=== PATIENT | female | born 1940 | race Caucasian/White ===

== ENCOUNTER → 2017-01-02 | Outpatient (CLI) | payer OTHER | LOC: BMCIMAGING 10:38 | PROVIDERS: ATTEND Internal Medicine Endocrinology, Diabetes & Metabolism | DX: E04.1 Nontoxic single thyroid nodule (principal) | CPT/HCPCS: 76536-PO ==

== ENCOUNTER 2017-04-04 18:22 | Inpatient (IN) | payer OTHER ==
--- NOTE | 2017-04-04 18:37 | EDPHY ---
H & P Stated Complaint: pulm edema seen on Xray sent pt. HPI/ROS: CHIEF COMPLAINT: Dyspnea HISTORY OF PRESENT ILLNESS: The patient is an anticoagulated 76 y/o female arriving with her complaining of dyspnea and bilateral lower extremity edema worsening over the last week. She has a was referred to the emergency department by Dr. Dariel Vasquez after being examined by him in his office. She has a history of mechanical aortic valve, mitral valve repair, rheumatoid arthritis, breast cancer, and atrial fibrillation. Her breast cancer is currently treated with chemotherapy; she recently completed radiation therapy. She denies chest pain, cough, cold, fever. She states she is compliant with her medications. Dr. Vasquez's evaluation revealed congestive heart failure. REVIEW OF SYSTEMS: A ten point review of systems was performed and is negative with the exception of the items mentioned in the HPI. Source: Patient, Family - Personal History Current Tetanus/Diphtheria Vaccine: Unsure Current Tetanus Diphtheria and Acellular Pertussis (TDAP): Unsure Tetanus Vaccine Date: 2003 - Medical/Surgical History PMH: 1. Aortic valve replacement with mechanical St. Bret valve 2006 2. Mitral valve repair with ring 3. Chronic UTIs 4. Rheumatoid arthritis 5. Left breast cancer, post left lumpectomy, rad tx, currently receiving chemotherapy 6. GERD 7. Chronic anemia 8. Atrial fibrillation - Coumadin 9. Shoulder surgery 10. Hernia repair x2 11. Bilateral total knee replacements 12. Left total hip replacement Oncologist: Dr. Nell Raymond Kardex Clerk: Dr. Vasquez Prior medical history reviewed including admission 05/07/16 for weakness. Hx Asthma: No Hx Chronic Respiratory Disease: No Hx Diabetes: No Hx Cardiac Disease: Yes Hx Renal Disease: No Hx Cirrhosis: No Hx Alcoholism: No Hx HIV/AIDS: No Hx Splenectomy or Spleen Trauma: No Other PMH: heart valve replacement, RA, tonsillectomy, right shoulder surgery, hernia repair x 2, heart aneurysm repair x 2, left hip replacement, bilateral knee replacements, lt mastestomy - Social History Smoking Status: Never smoked Additional Social History: at bedside. Lives at home. No alcohol or smoking. Uses a wheelchair over long distances. - Physical Exam Exam: General Appearance: Alert. Thin, elderly. Vital signs reviewed. Blood pressure 110/86, heart rate 88 at triage. Pulse ox 84% on room air at triage. Eyes: Pupils equal and round, no conjunctival injection, no discharge. Anicteric. ENT, Mouth: Mucous membranes are moist, no oropharyngeal erythema or edema. Neck: No lymphadenopathy, supple. No jugular venous distention. Respiratory: Bilateral rales at the bases bilaterally extending half-way up. Cardiovascular: Regular rate with occasional ectopic beat; loud valvular click Gastrointestinal: Abdomen is soft and nontender, no masses or organomegaly, bowel sounds normal. Skin: Warm and dry, no rashes on exposed skin, normal color. Well-healed thoracic scar. Back: Nontender to palpation over the thoracolumbar spine. No CVAT. Extremities: 2+ lower extremity edema extending almost to knee, no calf tenderness. Chronic joint deformities. Neurological: Alert and oriented. Moving all four extremities easily and equally. Psychiatric: Normal affect. Constitutional: Initial Vital Signs Temperature (C) 36.7 C 04/04/17 18:27 Heart Rate 88 04/04/17 18:27 Respiratory Rate 14 04/04/17 18:27 Blood Pressure 110/86 H 04/04/17 18:27 O2 Sat (%) 84 L 04/04/17 18:27 O2 Delivery Mode Nasal Cannula O2 (L/minute) 3 Allergies/Adverse Reactions: Sulfa (Sulfonamide Antibiotics) Allergy (Severe, Verified 09/22/09 16:54) Rash sulfamethoxazole [From Septra] Allergy (Severe, Verified 09/22/09 16:53) Rash trimethoprim [From Septra] Allergy (Severe, Verified 09/22/09 16:53) Rash Penicillins Allergy (Intermediate, Verified 09/22/09 16:55) Rash homatropine [From Hycodan (with homatropin)] Allergy (Verified 06/29/15 10:54) Unknown homatropine methylbromide [From Hycodan (with homatropin)] Allergy (Verified 10:54) Unknown hydrocodone bitartrate [From Hycodan (with homatropin)] Allergy (Verified 10:54) Unknown Home Medications: Medication Instructions Recorded Acetaminophen [Tylenol ES 500 mg 500 - 1,500 mg PO DAILY PRN 04/04/17 (*)] Cyclobenzaprine [Flexeril 10 MG 10 mg PO DAILY PRN 04/04/17 (*)] Estradiol [Estrace Vaginal (*)] 1 gm VAG TUTHSA 04/04/17 Methimazole 10 mg PO DAILY 04/04/17 Methotrexate Sodium [Rheumatrex 7.5 mg PO FR 04/04/17 2.5 mg (RX)] Mupirocin 2% [Bactroban 2% Oint 1 devika TOP MOFR PRN 04/04/17 (RX)] Warfarin Sodium [Coumadin 3MG (*)] 3 mg PO SUMOWEFRSA@18 04/04/17 Warfarin Sodium [Coumadin 3MG (*)] 4.5 mg PO TUTH@18 04/04/17 celeCOXIB [CeleBREX] 100 mg PO DAILY PRN 04/04/17 Medical Decision Making - Diagnostics EKG Interpretation: 12 lead EKG is interpreted in Trace master View by emergency department physician. Imaging: I viewed and interpreted images myself ED Course/Re-evaluation: IV established. Labs drawn including CBC, troponin. Patient placed on saddle lining stitcher. Chest x-ray and CHEM and BNP from earlier today reviewed. 20mg IV Lasix administered. Reviewed CXR done earlier today. History and physical indicates CHF--unclear etiology. Could be related to valvular disease, systolic dysfunction, ischemia, arrhythmia. Will need echo. She has had paroxysmal rapid Afib in ED. Her INR is subtherapeutic. She might need rate control--will watch frequency of afib with RVR. 1900: Spoke with hospitalist service. Dr. Fox accepts admission. - Data Points Laboratory Results: Laboratory Results 04/04/17 19:00 Medications Given: Discontinued Medications Amiodarone HCl (Amiodarone Hcl) 200 mg PO DAILY [facility] Stop: 10/04/17 08:59 Last Admin: 04/07/17 08:41 Dose: 200 mg Carvedilol (Coreg) 3.125 mg PO BIDMEAL PAT Stop: 10/02/17 20:10 Last Admin: 04/04/17 20:30 Dose: 3.125 mg Furosemide (Lasix Injection) 20 mg IVP EDNOW ONE Stop: 04/04/17 19:02 Last Admin: 04/04/17 19:36 Dose: 20 mg Furosemide (Lasix Injection) 20 mg IVP BIDDIUR PAT Stop: 10/02/17 08:59 Last Admin: 04/06/17 16:32 Dose: 20 mg Furosemide (Lasix Injection) 20 mg IVP ONCE ONE Stop: 04/06/17 17:07 Last Admin: 04/06/17 17:54 Dose: 20 mg Amiodarone HCl (Amiodarone Hcl) 100 mls @ 600 mls/hr IV ONCE ONE Stop: 04/07/17 00:58 Last Admin: 04/07/17 01:02 Dose: 100 mls Amiodarone HCl (Amiodarone Hcl) 200 mls @ 33.333 mls/hr IV ONCE ONE Stop: 04/07/17 16:29 Last Admin: 04/07/17 10:52 Dose: 200 mls Amiodarone HCl 540 mg/ (Dextrose) 300 mls @ 16.667 mls/hr IV ONCE ONE Stop: 04/08/17 10:29 Last Admin: 04/07/17 16:30 Dose: 300 mls Metoprolol Tartrate (Lopressor Injection) 5 mg IVP ONCE ONE Stop: 04/06/17 00:48 Last Admin: 04/06/17 01:15 Dose: 2.5 mg Warfarin Sodium (Coumadin) 2 mg PO ONCE ONE Stop: 04/07/17 17:01 Last Admin: 04/07/17 17:40 Dose: 2 mg Warfarin Sodium (Coumadin) 1 mg PO 1600 ONE Stop: 04/08/17 16:01 Last Admin: 04/08/17 15:56 Dose: 1 mg Departure - Departure Disposition: [facility] Inpatient Acute Clinical Impression: Pulmonary edema Qualifiers: Chronicity: acute Qualified Code(s): J81.0 - Acute pulmonary edema CHF (congestive heart failure) Qualifiers: Congestive heart failure type: unspecified congestive heart failure type Congestive heart failure chronicity: unspecified congestive heart failure chronicity Qualified Code(s): I50.9 - Heart failure, unspecified Dyspnea Qualifiers: Dyspnea type: shortness of breath Qualified Code(s): R06.02 - Shortness of breath Condition: Fair Report Scribed for: Loreto Branch Report Scribed by: Linda Vale Date of Report: 04/04/17 Time of Report: 18:48 Physician Review and Approval Statement: 04/04/17 18:37 Portions of this note were transcribed by the medical coordinator pesticide use. I, Dr. Loreto Branch, personally performed the history, physical exam, and medical decision- making; and confirmed the accuracy of the information in the transcribed note.
[2017-04-04] MEDS ORDERED: FUROSEMIDE 20 MG/2 ML VIAL IVP ONE (19:01)
[2017-04-04 19:06] LABS: % IMMATURE GRANULYOCYTES 0.5 % (0.0-1.1); ABSOLUTE IMMATURE GRANULOCYTES 0.04 10^3/uL (0.00-0.10); ADD DIFF? NO; ADD MORPH? NO; ADD SCAN? NO; ATYPICAL LYMPHOCYTE FLAG 0 (0-99); FRAGMENT RBC FLAG 0 (0-99); HEMATOCRIT 30.5 % (38.0-47.0); HEMOGLOBIN 9.5 g/dL (12.6-16.3); LEFT SHIFT FLG 10 (0-99); LIPEMIA HEMOLYSIS FLAG 80 (0-99); MEAN CELL HEMOGLOBIN 30.4 pg (27.9-34.1); MEAN CELL HEMOGLOBIN CONCENTR. 31.1 g/dL (32.4-36.7); MEAN CELL VOLUME 97.8 fL (81.5-99.8); MEAN PLATELET VOLUME 9.5 fL (8.7-11.7); PLATELET CLUMPS FLAG 10 (0-99); PLATELET COUNT 299 10^3/uL (150-400); RED BLOOD CELL COUNT 3.12 10^6/uL (4.18-5.33)
--- NOTE | 2017-04-04 19:08 | CPEKG ---
Heart Rate: 140 RR Interval: 429 QRSD Interval: 96 QT Interval: 312 QTC Interval: 476 QRS [place]: 53 T Wave [place]: 188 EKG Severity - ABNORMAL ECG - EKG Impression: Atrial fibrillation Electronically Signed By: Loreto Branch 05-Apr-2017 00:18:32
[2017-04-04 19:26] LABS: INR 1.69 (0.83-1.16); PROTIME(PATIENT) 19.9 SEC (12.0-15.0)
[2017-04-04 19:27] LABS: APTT 41.6 SEC (23.0-38.0)
[2017-04-04] MEDS ORDERED: TEMAZEPAM 15 MG CAP PO PRN (19:54)
[2017-04-04] MEDS ORDERED: ONDANSETRON DISINTEGRATING 4 MG TAB PO PRN (19:54)
[2017-04-04] MEDS ORDERED: ONDANSETRON 4 MG/2 ML VIAL IVP PRN (19:54)
[2017-04-04] MEDS ORDERED: MUPIROCIN 2% 22 GM OINT TP PRN (20:21)
[2017-04-04 20:57] LABS: T3 (TRIIODOTHYRONINE) TOTAL 0.968 ng/mL (0.970-1.690)
--- NOTE | 2017-04-04 20:59 | GHP ---
[f rep st] HISTORY AND PHYSICAL DATE OF ADMISSION: 04/04/2017 CHIEF COMPLAINT: Sent in by Dr. Vasquez short of breath. HISTORY OF PRESENT ILLNESS: This is a 76-year-old female with a history of aortic and mitral valve replacement as well as AFib, who presents with shortness of breath. She has been feeling this way f or about a week. She has been unable to lie flat and has had to sit up. She has some occasional co ughing. She has no chest pain. She went in to see Dr. Vasquez today, who got a chest x-ray and sent h er to the ED for further workup of possible CHF. She has breast cancer, however, has only had hormo nal therapy, specifically no Adriamycin. She has atrial fibrillation and has felt multiple palpitat ions over the last week. PAST MEDICAL/SURGICAL HISTORY: 1. AFib on anticoagulation. 2. Aortic valve replacement and mitral valve replacement. 3. Breast cancer, status post chemo as well as lumpectomy. 4. Rheumatoid arthritis. MEDICATIONS: Please see medication reconciliation. ALLERGIES: Bactrim, penicillin, Hycodan. SOCIAL HISTORY: She lives with her . She does not drink or smoke. FAMILY HISTORY: Father of leukemia. REVIEW OF SYSTEMS: 10-point review of systems is conducted and is negative except per HPI. PHYSICAL EXAM: VITAL SIGNS: Blood pressure 128/78, heart rate 94, respiration rate 14, initially s aturating 84% on 3 L. GENERAL: The patient is a pleasant, elderly female, who is lying in bed, devika ears comfortable, in no acute distress. She has a hoarse voice. HEENT: Normocephalic, atraumatic. CARDIOVASCULAR: When I listen to her, she is regular. She has a very prominent S2 click. She siddiqi s a soft systolic murmur. PULMONARY: Bilateral basilar rales to her mid lung gipson. ABDOMEN: So ft, nontender, nondistended. SKIN: No rash. : No Gonzalez. NEUROLOGIC: Exam shows her to be kim rt and oriented x3. She is moving all extremities. PSYCHIATRIC: Exam shows normal mood and affect . EXTREMITIES: Significant rheumatoid arthritis deformity in both of her hands. LABS: Hemoglobin is 9.5. INR 1.69. Troponins negative. BNP was 6,000. Creatinine 0.6. TSH is 0.1 55. DATA: 1. I discussed this with Dr. Branch. Will admit to the PCU. 2. I personally viewed and interpreted her chest x-ray. This shows likely pulmonary edema. She siddiqi s sternotomy wires. You can see her aortic valve and mitral valve rings. 3. EKG which I personally reviewed and interpreted shows AFib. She is going at a rate of 140, and 1 EKG shows T-wave inversions in V4 through V6. Reviewing another EKG she is in sinus rhythm. Thos e T-wave inversions are not present. IMPRESSION AND PLAN: This is a 76-year-old female with rheumatoid arthritis and breast cancer, who presents with new congestive heart failure. 1. Acute congestive heart failure: We will order an echo to further characterize. Unclear reason for being in congestive heart failure. Could be systolic versus valvular. Agree with furosemide as written by Dr. Branch. I will continue this. I have given her a low dose of carvedilol, which I t hink she will tolerate. I reviewed her last echocardiogram about a year ago, which shows moderate t o severe mitral valve regurgitation, pulmonary hypertension with an ejection fraction of 75%. She w ould benefit from a cardiology consultation tomorrow. 2. Atrial fibrillation with rapid ventricular response: She is paroxysmal. I will give her a smal l dose of Coreg for rate as well as rhythm control. I would like to be somewhat cautious with aggre ssive nancy blockers given her unknown systolic function at this time. She may need further rate co ntrol; would also consider amiodarone. 3. Subtherapeutic INR: Will continue her warfarin for now. If she remains subtherapeutic, would co nsider heparin. I calculate her CHADS2 at approximately 3. 4. Rheumatoid arthritis: This is severe. She took methotrexate today. I think it is reasonable t o continue this, though I am not sure what her dosing schedule is. 5. Code status: She would like to be full code. 6. Venous thromboembolism risk is low. She is on Coumadin. /[id number]/MODL
[2017-04-04] MEDS: ACETAMINOPHEN 500 MG TAB PO PRN (22:38)
[2017-04-04] MEDS: METHOTREXATE 2.5 MG TAB PO SCH (22:47)
[2017-04-05 07:01] LABS: % IMMATURE GRANULYOCYTES 0.3 % (0.0-1.1); ABSOLUTE IMMATURE GRANULOCYTES 0.02 10^3/uL (0.00-0.10); ADD DIFF? NO; ADD MORPH? NO; ADD SCAN? NO; ATYPICAL LYMPHOCYTE FLAG 0 (0-99); FRAGMENT RBC FLAG 0 (0-99); HEMATOCRIT 28.6 % (38.0-47.0); HEMOGLOBIN 8.9 g/dL (12.6-16.3); LEFT SHIFT FLG 0 (0-99); LIPEMIA HEMOLYSIS FLAG 80 (0-99); MEAN CELL HEMOGLOBIN 30.3 pg (27.9-34.1); MEAN CELL HEMOGLOBIN CONCENTR. 31.1 g/dL (32.4-36.7); MEAN CELL VOLUME 97.3 fL (81.5-99.8); PLATELET CLUMPS FLAG 0 (0-99); PLATELET COUNT 260 10^3/uL (150-400); RED BLOOD CELL COUNT 2.94 10^6/uL (4.18-5.33)
[2017-04-05 07:12] LABS: INR 1.63 (0.83-1.16); PROTIME(PATIENT) 19.4 SEC (12.0-15.0)
[2017-04-05 07:32] LABS: ANION GAP 5 mEq/L (8-16); CALCIUM 8.4 mg/dL (8.5-10.4); CARBON DIOXIDE 29 mEq/l (22-31); CHLORIDE 105 mEq/L (97-110); CREATININE 0.6 mg/dL (0.6-1.0); GLOMERULAR FILTRATION RATE > 60; GLUCOSE 84 mg/dL (70-100); POTASSIUM 4.4 mEq/L (3.5-5.2); SODIUM 139 mEq/L (134-144)
[2017-04-05 07:33] LABS: ALANINE AMINOTRANSFERASE 30 IU/L (9-52); ALBUMIN 2.6 g/dL (3.5-5.0); ALKALINE PHOSPHATASE 114 IU/L (38-126); ASPARTATE AMINOTRANSFERASE 40 IU/L (14-46); BILIRUBIN,TOTAL 0.6 mg/dL (0.1-1.4); TOTAL PROTEIN 5.9 g/dL (6.3-8.2)
[2017-04-05 07:44] LABS: TROPONIN I 0.016 ng/mL (0-0.034)
[2017-04-05] MEDS: METHIMAZOLE 5 MG TAB PO SCH (08:57)
[2017-04-05] MEDS: ACETAMINOPHEN 500 MG TAB PO PRN (08:57)
[2017-04-05] MEDS: FUROSEMIDE 20 MG/2 ML VIAL IVP SCH ×2 (08:57→17:01)
--- NOTE | 2017-04-05 12:00 | ECHO ---
[id number] + + [address] : : [place] [address] : : [phone] + + Adult Echocardiographic Report + -------+ :Name: GALO KHAN GStudy Date: 04/05/2017 10:11 AM BP: 93/79 mmHg : : Hospital Admission Number: [id number] Locati on: 217: :: 1940 Gender: Female Height: 65 in : :Age: 76 yrs Race: WH Weight: 103 lb : :Reason For Study: CHF : : BSA: 1.5 meter s2 : :History: CHF : + -------+ MMode/2D Measurements \T\ Calculations IVSd: 1.1 cm RVDd: 4.3 cm FS: 25.1 % Ao root diam: LVPWd: 0.85 cm LVIDd: 3.2 cm EDV(Teich): 2.8 cm LVIDs: 2.4 cm 41.9 ml ESV(Teich): 20.6 ml EF(Teich): 50.9 % LVLd ap4: 8.0 cm SV(MOD-sp4): EDV(MOD-sp4): 44.0 ml 71.0 ml LVLs ap4: 6.3 cm ESV(MOD-sp4): 27.0 ml EF(MOD-sp4): 62.0 % Normal Measurement Values: + + :LVIDd (3.5-5.7cm) IVSd (0.6-1.1cm) LVPWd (0.6-1.1cm) Aortic Root (2.0-3.7cm)Left Atrium (1.5-4.0cm): :LV Vol(d) (76-115ml) LV Vol(s) (29-48ml) Ejec Fraction (50-65%)PV Donaot (0.6- 1.2m/s) TV Donato (0.4-1.0m/s) : :MV E Donato (0.8-1.0m/s)MV A Donato (0.3-1.0m/s)LVOT Donato (0.7-1.2m/s) Asc Ao Donato ( 0.9-1.8m/s) : + + Doppler Measurements \T\ Calculations MV V2 mean: MV P1/2t max donato: Ao mean PG: LV V1 max: 99.5 cm/sec 174.9 cm/sec 7.8 mmHg 87.7 cm/sec MV mean PG: MV P1/2t: 64.5 msec Ao V2 mean: LV V1 max P.7 mmHg MVA(P1/2t): 3.4 cm2 136.0 cm/sec 3.1 mmHg MV V2 VTI: MV dec slope: Ao V2 VTI: 33.8 cmLV V1 mean P.2 cm 1.7 mmHg 793.8 cm/sec2 LV V1 mean: 63.1 cm/sec LV V1 VTI: 18.2 cm PA V2 max: PI end-d donato: TR max donato: 54.3 cm/sec 111.3 cm/sec 256.5 cm/sec PA max PG: TR max P.2 mmHg 26.3 mmHg RAP systole: 5.0 mmHg RVSP(TR): 31.3 mmHg Left Ventricle The left ventricle is normal in size and function. There is mild concentric left ventricular hypertrophy. Ejection Fraction = 60%. No regional wall motion abnormalities noted. Right Ventricle The right ventricle is mildly dilated. The right ventricular systolic function is borderline reduced. Atria The left atrium is moderately dilated. The Left Atrial Volume is 41 ml/m2. The right atrium is moderately dilated. Mitral Valve The mitral valve leaflets appear thickened, but open well. Mean gradient across the MV repair 5mmHg. There is moderate mitral regurgitation. An annuloplasty ring is noted in the mitral position. Tricuspid Valve The tricuspid valve is normal in structure and function. There is no tricuspid stenosis. There is moderate tricuspid regurgitation. Right ventricular systolic pressure is 31mmHg. Aortic Valve Mean gradient across the AVR 8mmHg. Mild aortic regurgitation. There is a bi-leaflet (St. Bret) aortic mechanical prosthesis. Pulmonic Valve The pulmonic valve is normal in structure and function. Mild pulmonic valvular regurgitation. Great Vessels The aortic root is normal size. Normal ascending aorta size. Pericardium/Pleural trivial pericardial effusion. Conclusion A two-dimensional transthoracic echocardiogram with pulsed and continuous Doppler was performed. The left ventricle is normal in size and function. There is mild concentric left ventricular hypertrophy. Ejection Fraction = 60%. The right ventricle is mildly dilated. The left atrium is moderately dilated. The Left Atrial Volume is 41 ml/m2. The right atrium is moderately dilated. An annuloplasty ring is noted in the mitral position. The mitral valve leaflets appear thickened, but open well. Mean gradient across the MV repair 5mmHg. There is moderate mitral regurgitation. There is moderate tricuspid regurgitation. Right ventricular systolic pressure is 31mmHg. There is a bi-leaflet (St. Bret) aortic mechanical prosthesis. Mild aortic regurgitation. Mean gradient across the AVR 8mmHg. Mild pulmonic valvular regurgitation. Normal ascending aorta size. trivial pericardial effusion. no change from echo of 04/2016 Final Reading Physician: Love Wells signed on 04/05/2017 11:58 AM Ordering Physician: Steve Fox Performed By: Ursula Sheets
[2017-04-05] MEDS ORDERED: LACTULOSE 20 GM/30 ML UDCUP PO PRN (12:09)
[2017-04-05] MEDS ORDERED: MAGNESIUM HYDROXIDE 30 ML UDCUP PO PRN (12:09)
[2017-04-05] MEDS ORDERED: BISACODYL 10 MG SUPP PR PRN (12:09)
[2017-04-05] MEDS ORDERED: POLYETHYLENE GLYCOL 3350 17 GM PKT PO PRN (12:09)
[2017-04-05] MEDS: ESTRADIOL 42.5 GM CRTUBE VG SCH (12:45)
[2017-04-05] MEDS: CARVEDILOL 3.125 MG TAB PO SCH ×2 (13:08→17:01)
[2017-04-05 14:21] LABS: COLOR YELLOW; LEUKOCYTE ESTERASE,URINE 3+ (NEGATIVE); NITRITE,URINE POSITIVE (NEGATIVE)
[2017-04-05 14:26] LABS: BACTERIA 4+ /hpf (NONE SEEN); MUCUS TRACE /lpf (NONE-1+); RBC,URINE 25-50 /hpf (0-3); WBC,URINE 50-182 /hpf (0-3)
--- NOTE | 2017-04-05 14:56 | HOSPPROG ---
Hospitalist Progress Note Assessment/Plan: 76 yo F with hx of VHD, a fib and metastatic breast cancer presenting with sob # sob: in setting of chronic hypoxic respiratory failure and does seem to be currently at baseline. ? chf versus pna versus atelectasis. CXR personally reviewed and notable for right lung consolidation that looks slightly better overnight. Continue IV lasix, echo without significant change. Did have a fib w/ rvr to 140 initially likely contributing as well. # a fib w/rvr: started on low dose BB with rates down to the 60s, echo without change, reviewed care plan with cardiology who do not recommend any changes currently and will be available peripherally if needed. Is on chronic AC though INR subtherapeutic on arrival, will bridge with lovenox for now. # right lung consolidation: as above, suspect this is more likely asymmetric pulmonary edema rather than pna without much clinically to suggest pna. Monitoring off of abx for now, repeat cxr as above personally reviewed and appears slightly improved # metastatic breast cancer: previously known to have mets to lung, on hormone therapy alone # chronic anemia: in setting of chronic severe RA as well as metastatic breast cancer and presumably 2/2 anemia of chronic disease # low tsh/low t3: normal free t4, at this time would not change treatment and would have these repeated in 4-6 weeks, continued on methimazole, will look for further op records for more information on her history # generalized weakness: with inability to really move around much at this time, unclear what her baseline function is, pt/ot to eval # RA: continued on mtx # severe t10 compression fx: without complaints clearly related to this # vhd: with hx of aortic and mitral valve surgeries in the past, no change noted on echo in valve function # dispo: IP status, multiple active medical issues Patient new to my care. Old records reviewed and summarized as above. Care plan reviewed with cardiology Subjective: no significant overnight events, patient notes she is feeling a bit better today but still very weak, not able to move much in bed Objective: Vital Signs Temp Pulse Resp BP Pulse Ox 36.5 C 64 24 H 100/60 98 04/05/17 11:22 04/05/17 11:22 04/05/17 11:22 04/05/17 11:22 04/05/17 11:22 Laboratory Results 04/05/17 06:49 04/05/17 06:49 04/04/17 04/05/17 04/06/17 05:59 05:59 05:59 Intake Total 320 400 Output Total 500 Balance 320 -100 PT 19.4 SEC (12.0-15.0) H 04/05/17 06:49 INR 1.63 (0.83-1.16) H 04/05/17 06:49 chronically ill appearing anicteric op clear irreg irreg prominent s1/s2 dec bs at bases, poor insp effort soft nt nd 1-2+ pitting edema ble warm dry hyperpigmented ble c/w venous stasis oriented appropriate - Time Spent With Patient Time Spent with Patient: greater than 35 minutes Time Spent with Patient: Greater than 35 minutes spent on this patients care, greater than 50% of time spent counseling, educating, and coordinating care regarding the above mentioned plan. ICD10 Worksheet Patient Problems: Problems Problem Status Onset Supratherapeutic INR Acute Weakness Acute Hypotension Acute Dehydration Acute Pulmonary edema Acute CHF (congestive heart failure) Acute Dyspnea Acute
[2017-04-05] MEDS: ENOXAPARIN 40 MG/0.4 ML SYR SC SCH (17:00)
[2017-04-05] MEDS: WARFARIN SODIUM 3 MG TAB PO SCH (17:00)
[2017-04-05] MEDS ORDERED: CARVEDILOL 3.125 MG TAB PO SCH (20:11)
[2017-04-05] MEDS: SENNOSIDES/DOCUSATE SODIUM TAB PO SCH (23:36)
[2017-04-06] MEDS ORDERED: METOPROLOL TARTRATE 5 MG/5 ML INJ IVP ONE (00:47)
[2017-04-06] MEDS ORDERED: METOPROLOL TARTRATE 5 MG/5 ML INJ ONE (00:52)
--- NOTE | 2017-04-06 01:00 | CPEKG ---
Heart Rate: 166 RR Interval: 361 P-R Interval: 107 QRSD Interval: 80 QT Interval: 260 QTC Interval: 433 P [place]: 0 QRS [place]: 57 T Wave [place]: 208 EKG Severity - ABNORMAL ECG - EKG Impression: SUPRAVENTRICULAR TACHYCARDIA EKG Impression: REPOLARIZATION ABNORMALITY, PROB RATE RELATED Electronically Signed By: Yanelis Campbell 06-Apr-2017 19:32:07
[2017-04-06 07:54] LABS: % IMMATURE GRANULYOCYTES 0.5 % (0.0-1.1); ABSOLUTE IMMATURE GRANULOCYTES 0.03 10^3/uL (0.00-0.10); ADD DIFF? NO; ADD MORPH? NO; ADD SCAN? NO; ATYPICAL LYMPHOCYTE FLAG 0 (0-99); FRAGMENT RBC FLAG 30 (0-99); HEMATOCRIT 26.7 % (38.0-47.0); LEFT SHIFT FLG 0 (0-99); LIPEMIA HEMOLYSIS FLAG 80 (0-99); MEAN CELL HEMOGLOBIN 29.9 pg (27.9-34.1); MEAN CELL VOLUME 99.6 fL (81.5-99.8); MEAN PLATELET VOLUME 9.8 fL (8.7-11.7); PLATELET CLUMPS FLAG 0 (0-99); PLATELET COUNT 270 10^3/uL (150-400); RED BLOOD CELL COUNT 2.68 10^6/uL (4.18-5.33); RED CELL DISTRIBUTION WIDTH 14.8 % (11.5-15.2)
[2017-04-06 08:13] LABS: ANION GAP 5 mEq/L (8-16); CARBON DIOXIDE 29 mEq/l (22-31); CHLORIDE 105 mEq/L (97-110); CREATININE 0.6 mg/dL (0.6-1.0); GLUCOSE 88 mg/dL (70-100); POTASSIUM 4.1 mEq/L (3.5-5.2); SODIUM 139 mEq/L (134-144)
[2017-04-06 08:14] LABS: GLOMERULAR FILTRATION RATE > 60
[2017-04-06] MEDS: CARVEDILOL 3.125 MG TAB PO SCH ×2 (08:26→20:21)
[2017-04-06] MEDS: ENOXAPARIN 40 MG/0.4 ML SYR SC SCH ×2 (08:26→16:32)
[2017-04-06] MEDS: ACETAMINOPHEN 500 MG TAB PO PRN ×2 (11:13→20:19)
[2017-04-06] MEDS: METHIMAZOLE 5 MG TAB PO SCH (11:14)
[2017-04-06] MEDS: FUROSEMIDE 20 MG/2 ML VIAL IVP SCH ×2 (11:15→16:32)
[2017-04-06] MEDS: SENNOSIDES/DOCUSATE SODIUM TAB PO SCH ×2 (11:16→20:23)
[2017-04-06] MEDS ORDERED: ALBUTEROL 3 ML DEYVIAL IH PRN (14:59)
--- NOTE | 2017-04-06 15:10 | CPEKG ---
Heart Rate: 86 RR Interval: 698 P-R Interval: 176 QRSD Interval: 86 QT Interval: 392 QTC Interval: 469 P [place]: 49 QRS [place]: 55 T Wave [place]: 186 EKG Severity - ABNORMAL ECG - EKG Impression: SINUS RHYTHM EKG Impression: PROBABLE LEFT ATRIAL ABNORMALITY EKG Impression: CONSIDER ANTEROSEPTAL INFARCT EKG Impression: NONSPECIFIC T ABNORMALITIES, LATERAL LEADS Electronically Signed By: Yanelis Campbell 06-Apr-2017 19:32:12
--- NOTE | 2017-04-06 15:23 | GCON ---
[f rep st] CONSULTATION CARDIOLOGY CONSULTATION DATE OF CONSULTATION: 04/06/2017 REFERRING PHYSICIAN: John Ortega MD REASON FOR CONSULTATION: 1. Atrial fibrillation with rapid ventricular response. 2. History of valvular heart disease. 3. Acute congestive heart failure with probable contributors of diastolic dysfunction, valvular hea rt disease, and pulmonary hypertension. HISTORY OF PRESENT ILLNESS: She was seen at [facility], Cardiology, for increasing shor tness of breath and some lower extremity edema. She reported orthopnea. She was sent to the emerge ncy room for further evaluation, and has now been admitted for management. Her symptoms began a wee k or so ago. She has had to sit up at nighttime in order to breathe. She has had a cough, but has not had fever or production of discolored sputum. Her past history includes paroxysmal atrial fibrillation and she has noted significantly increasing episodes over the past few weeks while she has been receiving radiation therapy for breast cancer. She states that episodes have lasted for several hours in duration. She has not had any CVA/TIA typ e symptoms. PAST CARDIAC HISTORY AND TESTING: She has a history of valvular heart disease. She underwent marisabel l valve repair/angioplasty in the . She had a [employer] Bret mechanical aortic prosthesis placed in 2006. There is no history of coronary artery disease. Apart from her atrial fibrillation, she does not have any additional arrhythmia history. She has not previously been a heart failure patient. In the past, she had been on lisinopril and carvedilol. However, these medications were stopped dur ing a hospitalization in January of 2016 when she experienced dehydration, hypotension, and acute jorge l insufficiency. The plan was for consideration of reinitiation of her beta zeynep and NAKITA inhibit or in the outpatient setting. However, at the time of her admission the only medication relevant to her cardiac situation is warfarin. PAST MEDICAL HISTORY: She has rheumatoid arthritis and metastatic breast cancer. MEDICATIONS: Please see the electronic chart for her home medications. The only medication relevan t to her cardiac situation is warfarin. ALLERGIES: Sulfa, sulfamethoxazole, trimethoprim, penicillins. SOCIAL HISTORY: She is . Her is with her in her room today. She is a nonsmoker and nondrinker. FAMILY HISTORY: Is not pertinent to this episode of care. REVIEW OF SYSTEMS: Notable for dyspnea, orthopnea, and lower extremity edema which prompted evaluat ion for this hospital encounter. She has chronic arthritis issues. Otherwise, a 10-point review is negative. PHYSICAL EXAMINATION: VITAL SIGNS: Heart rate in the 80s with sinus rhythm on the monitor. Blood pressure 93/59. GENERAL: This is a chronically ill-appearing woman who appears dyspneic at rest. She is alert and oriented x3. HEAD AND NECK: No scleral icterus. Mucous membranes moist. Carotid pulses 2+ without bruits. There is no JVD. CHEST: Lungs with mild basilar rales. ABDOMEN: Soft , nontender, nondistended, without masses. Normal bowel sounds. EXTREMITIES: Significant arthriti c deformity of the hands. 2+ lower extremity edema with chronic venous stasis changes. LABORATORY STUDIES: Sodium 139, potassium 4.1, BUN and creatinine 30 and 0.6. Serial troponins hav e all been normal. CBC demonstrates a white blood cell count of 6.49, with hemoglobin and hematocri t of 8.0 and 26.7, platelet count 270,000. IMAGING: ECG: Upon admission, her ECG demonstrated atrial fibrillation with a ventricular rate of 140 BPM. There were lateral precordial T-wave inversions. No Q-waves or conduction system disturba nces. IMPRESSION: This is a 76-year-old woman with metastatic breast cancer and a history of valvular hea rt disease. She also has a history of paroxysmal atrial fibrillation. She now presents with conges tive heart failure. Contributors to her congestive heart failure likely include diastolic dysfuncti on, valvular heart disease, pulmonary hypertension, and possibly anemia as well. An echocardiogram performed at the time of admission demonstrated an ejection fraction of 60%. She had mild concentric LVH. Moderate mitral and tricuspid regurgitation were present. There was no si gnificant gradient across her [employer] Bret aortic prosthesis. Her PA systolic pressure was reported as 31 mmHg. She demonstrates mild volume overload. She is not experiencing any symptoms suggestive of angina. Certainly, the elevated heart rate with her atrial fibrillation exacerbates issues with diastolic dy sfunction. RECOMMENDATIONS: She has been started on twice daily intravenous Lasix. She has not demonstrated a significant diuretic response. Would consider increasing to 40-80 mg once a day. Caution will nee d to be employed given her history of dehydration and acute kidney injury in early 2016. Her blood pressure is borderline to slightly low. Carvedilol has been reinstituted at a low dose and she conv erted to sinus rhythm at 11:25 this morning. If she demonstrates recurrences of atrial fibrillation , I agree with the hospitalist's comment regarding amiodarone. She can be loaded with a single 150 mg intravenous dose and then started on 200 mg daily. Would not pursue a coronary ischemic workup a t this time. /[id number]/MODL
[2017-04-06 16:32] LABS: INR 1.31 (0.83-1.16); PROTIME(PATIENT) 16.3 SEC (12.0-15.0)
[2017-04-06] MEDS: WARFARIN SODIUM 3 MG TAB PO SCH (16:32)
--- NOTE | 2017-04-06 17:03 | HOSPPROG ---
Hospitalist Progress Note Assessment/Plan: 76 yo F with hx of VHD, a fib and metastatic breast cancer presenting with sob # sob: in setting of chronic hypoxic respiratory failure and improving symptomatically. ? chf versus pna versus atelectasis. Continue IV lasix at increased dose, appreciate cardiology input. # a fib w/rvr: started on low dose BB and has converted to SR, bp remains slightly low and could consider amiodarone if she does not tolerate bb. # right lung consolidation: as above, suspect this is more likely asymmetric pulmonary edema rather than pna without much clinically to suggest pna. Lasix as above, has not worsened without abx on board # metastatic breast cancer: previously known to have mets to lung, on hormone therapy alone # chronic anemia: in setting of chronic severe RA as well as metastatic breast cancer and presumably 2/2 anemia of chronic disease # low tsh/low t3: normal free t4, at this time would not change treatment and would have these repeated in 4-6 weeks, continued on methimazole, will look for further op records for more information on her history # generalized weakness: with inability to really move around much at this time, unclear what her baseline function is, pt/ot to eval # RA: continued on mtx # severe t10 compression fx: without complaints clearly related to this # vhd: with hx of aortic and mitral valve surgeries in the past, no change noted on echo in valve function # dispo: IP status, multiple active medical issues Care plan reviewed with cardiology Subjective: no significant overnight events, hr initially high in the 140-160s but improved with carvedilol Objective: Vital Signs Temp Pulse Resp BP Pulse Ox 36.4 C 81 20 92/59 L 99 04/06/17 15:57 04/06/17 15:57 04/06/17 15:57 04/06/17 15:57 04/06/17 15:57 Laboratory Results 04/06/17 03:15 04/06/17 03:15 04/05/17 04/06/17 04/07/17 05:59 05:59 05:59 Intake Total 320 850 Output Total 550 Balance 320 300 PT 16.3 SEC (12.0-15.0) H 04/06/17 16:15 INR 1.31 (0.83-1.16) H 04/06/17 16:15 chronically ill appearing anicteric op clear irreg irreg prominent s1/s2 dec bs at bases, poor insp effort soft nt nd 1-2+ pitting edema ble warm dry hyperpigmented ble c/w venous stasis oriented appropriate ICD10 Worksheet Patient Problems: Problems Problem Status Onset CHF (congestive heart failure) Acute Dyspnea Acute Pulmonary edema Acute Dehydration Acute Hypotension Acute Supratherapeutic INR Acute Weakness Acute
[2017-04-06] MEDS ORDERED: FUROSEMIDE 20 MG/2 ML VIAL IVP ONE (17:06)
[2017-04-06] MEDS: IPRATROPIUM/ALBUTEROL 3 ML DEYVIAL IH SCH ×2 (17:37→22:18)
[2017-04-07] MEDS ORDERED: AMIODARONE HCL 100 ML IV ONE (00:49)
[2017-04-07 05:25] LABS: % IMMATURE GRANULYOCYTES 0.3 % (0.0-1.1); ABSOLUTE IMMATURE GRANULOCYTES 0.02 10^3/uL (0.00-0.10); ADD DIFF? NO; ADD MORPH? NO; ADD SCAN? NO; ATYPICAL LYMPHOCYTE FLAG 0 (0-99); FRAGMENT RBC FLAG 0 (0-99); HEMATOCRIT 28.2 % (38.0-47.0); HEMOGLOBIN 8.6 g/dL (12.6-16.3); LEFT SHIFT FLG 0 (0-99); LIPEMIA HEMOLYSIS FLAG 80 (0-99); MEAN CELL HEMOGLOBIN 30.5 pg (27.9-34.1); MEAN CELL HEMOGLOBIN CONCENTR. 30.5 g/dL (32.4-36.7); MEAN PLATELET VOLUME 9.3 fL (8.7-11.7); PLATELET CLUMPS FLAG 0 (0-99); PLATELET COUNT 239 10^3/uL (150-400); RED BLOOD CELL COUNT 2.82 10^6/uL (4.18-5.33); RED CELL DISTRIBUTION WIDTH 14.8 % (11.5-15.2)
[2017-04-07 05:35] LABS: INR 1.41 (0.83-1.16); PROTIME(PATIENT) 17.2 SEC (12.0-15.0)
[2017-04-07] MEDS: IPRATROPIUM/ALBUTEROL 3 ML DEYVIAL IH SCH ×4 (05:48→23:00)
[2017-04-07 05:54] LABS: ANION GAP 6 mEq/L (8-16); CALCIUM 8.2 mg/dL (8.5-10.4); CARBON DIOXIDE 34 mEq/l (22-31); CHLORIDE 98 mEq/L (97-110); CREATININE 0.6 mg/dL (0.6-1.0); GLOMERULAR FILTRATION RATE > 60; GLUCOSE 83 mg/dL (70-100); POTASSIUM 3.8 mEq/L (3.5-5.2); SODIUM 138 mEq/L (134-144)
[2017-04-07] MEDS: ENOXAPARIN 40 MG/0.4 ML SYR SC SCH ×2 (05:58→15:49)
[2017-04-07] MEDS: METHIMAZOLE 5 MG TAB PO SCH (08:41)
[2017-04-07] MEDS: FUROSEMIDE 40 MG/4 ML VIAL IVP SCH (08:42)
[2017-04-07] MEDS: SENNOSIDES/DOCUSATE SODIUM TAB PO SCH ×2 (08:42→20:24)
[2017-04-07] MEDS: CARVEDILOL 3.125 MG TAB PO SCH ×2 (08:54→17:40)
[2017-04-07] MEDS ORDERED: AMIODARONE HCL 200 MG TAB PO SCH (09:00)
[2017-04-07] MEDS ORDERED: AMIODARONE HCL 200 ML IV ONE (10:30)
--- NOTE | 2017-04-07 10:32 | PDCARPN ---
Cardiology Progress Note Chief Complaint: DCHF likely 2/2 AF RVR Assessment/Plan: Assessment: 76F PMH MV repair 1991, 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 #. DCHF: still appears moderately volume overloaded with JVD, peripheral edema and crackles on exam has diuresed 2 kg/ continue IV lasix for now resume using compressive stockings #. AF RVR has reverted back to AF and rate is 160 will start on drip R/B/A reviewed #. AVR/MV repair: mod MR and TR on echo report #. hypotension: BP borderline which may preclude her staying on Coreg will continue and monitor for now 04/07/17 10:26 Subjective: No cp, palps. Continues to note orthopnea with 2 pillows. No presyncope/ syncope. Has not been wearing compressive stockings which she typically does wear. Reviewed/Discussed With: hospitalist Objective: Vital Signs (8 Hrs) Temp Pulse Resp BP Pulse Ox 04/07/17 08:54 95/51 L 04/07/17 07:44 97.8 F 151 H 19 86/62 L 94 04/07/17 05:49 64 22 H 94 04/07/17 04:00 97.5 F 83 18 89/58 L 96 Intake/Output (24 Hrs) 04/06/17 04/07/17 04/08/17 05:59 05:59 05:59 Intake Total 850 1070 130 Output Total 550 Balance 300 1070 130 Intake: Oral (ml) 850 1010 IV Intake (ml) 30 IV Infused (ml) 60 100 Amiodarone HCl 100 ml @ 100 600 mls/hr IV ONCE ONE Rx #:[id number] cefTRIAXone 1 GM/DEXTROSE 60 50 ml @ 100 mls/hr IV DAILY [facility] Rx#:[id number] Output: Urine (ml) 550 Toilet 550 Other: Weight 44.8 kg Output Comment Incontinence significant output volume Number of Voids Incontinence 1 3 2 Toilet 1 1 Number of Stools Toilet 1 Result Diagrams: 04/07/17 05:15 04/07/17 05:15 Cardiac Labs: Cardiac Lab Results (72 Hrs) 04/05/17 04/05/17 06:49 00:50 Troponin I 0.016 0.013 EKG: AF RVR Echocardiogram: EF 60, mild con LVH, mod MR/TR, PAP 31 - Physical Exam Constitutional: no apparent distress, cachectic Eyes: anicteric sclera Ears, Nose, Mouth, Throat: moist mucous membranes Cardiovascular: irregularly irregular, other (tachycardic) Respiratory: reduced air movement, inspiratory crackles Gastrointestinal: normoactive bowel sounds, no tenderness Skin: warm, other (kesha PIPER) Neurologic: AAOx3 Psychiatric: cooperative, interactive ICD10 Worksheet Patient Problems: Problems Problem Status Onset CHF (congestive heart failure) Acute Dyspnea Acute Pulmonary edema Acute Dehydration Acute Hypotension Acute Supratherapeutic INR Acute Weakness Acute
[2017-04-07] MEDS: WARFARIN SODIUM 3 MG TAB PO SCH (15:49)
[2017-04-07] MEDS ORDERED: AMIODARONE HCL 540 MG in D5W 300 ML IV ONE (16:30)
[2017-04-07] MEDS ORDERED: WARFARIN SODIUM 2 MG TAB PO ONE (17:00)
--- NOTE | 2017-04-07 17:16 | HOSPPROG ---
Hospitalist Progress Note Assessment/Plan: 76 yo F with hx of VHD, a fib and metastatic breast cancer presenting with sob # sob: in setting of chronic hypoxic respiratory failure and improving symptomatically. ? chf versus pna versus atelectasis. Continue IV lasix for now # a fib w/rvr: started on low dose BB and has converted to SR initially but overnight rates increased again to the 160s and started rather on amio gtt at this time. Cardiology following, appreciate their help # uti: >100K GNR noted on urine culture, final s/s pending, for now treating with ctx, likely contributing to above. # right lung consolidation: as above, suspect this is more likely asymmetric pulmonary edema rather than pna without much clinically to suggest pna. Lasix as above, will repeat cxr in am # metastatic breast cancer: previously known to have mets to lung, on hormone therapy as well as s/p recent xrt # chronic anemia: in setting of chronic severe RA as well as metastatic breast cancer and presumably 2/2 anemia of chronic disease # low tsh/low t3/normal free t4, at this time would not change treatment and would have these repeated in 4-6 weeks, continued on methimazole # generalized weakness: with inability to really move around much at this time, per patient and her she is near baseline, continue pt/ot # RA: continued on mtx # severe t10 compression fx: without complaints clearly related to this, appears likely more chronic # protein calorie malnutrition: bmi 19, dietary consult # vhd: with hx of aortic and mitral valve surgeries in the past, no change noted on echo in valve function # dispo: IP status, multiple active medical issues Care plan reviewed with cardiology Subjective: overnight patient had increase in her hr to the 160s, started on amio gtt and rate now controlled, she is eager to dc home Objective: Vital Signs Temp Pulse Resp BP Pulse Ox 36.7 C 89 14 100/63 97 04/07/17 15:51 04/07/17 16:37 04/07/17 16:37 04/07/17 15:51 04/07/17 16:37 Laboratory Results 04/07/17 05:15 04/07/17 05:15 04/06/17 04/07/17 04/08/17 05:59 05:59 05:59 Intake Total 850 1070 130 Output Total 550 Balance 300 1070 130 PT 17.2 SEC (12.0-15.0) H 04/07/17 05:15 INR 1.41 (0.83-1.16) H 04/07/17 05:15 chronically ill appearing anicteric op clear irreg irreg prominent s1/s2 dec bs at bases, poor insp effort soft nt nd 1-2+ pitting edema ble warm dry hyperpigmented ble c/w venous stasis oriented appropria ICD10 Worksheet Patient Problems: Problems Problem Status Onset CHF (congestive heart failure) Acute Dyspnea Acute Pulmonary edema Acute Chronic Disease Mgmt/Transitional Care Acute Dehydration Acute Hypotension Acute Supratherapeutic INR Acute Weakness Acute
[2017-04-08] MEDS: ACETAMINOPHEN 325 MG TAB PO PRN ×2 (01:03→23:16)
[2017-04-08] MEDS: ENOXAPARIN 40 MG/0.4 ML SYR SC SCH ×2 (05:51→15:55)
[2017-04-08] MEDS: IPRATROPIUM/ALBUTEROL 3 ML DEYVIAL IH SCH ×4 (05:56→23:44)
[2017-04-08 06:13] LABS: % IMMATURE GRANULYOCYTES 0.5 % (0.0-1.1); ABSOLUTE IMMATURE GRANULOCYTES 0.03 10^3/uL (0.00-0.10); ADD DIFF? NO; ADD MORPH? NO; ADD SCAN? NO; ATYPICAL LYMPHOCYTE FLAG 10 (0-99); FRAGMENT RBC FLAG 0 (0-99); HEMATOCRIT 27.3 % (38.0-47.0); HEMOGLOBIN 8.3 g/dL (12.6-16.3); LEFT SHIFT FLG 0 (0-99); LIPEMIA HEMOLYSIS FLAG 80 (0-99); MEAN CELL HEMOGLOBIN 30.3 pg (27.9-34.1); MEAN CELL HEMOGLOBIN CONCENTR. 30.4 g/dL (32.4-36.7); MEAN CELL VOLUME 99.6 fL (81.5-99.8); MEAN PLATELET VOLUME 9.9 fL (8.7-11.7); PLATELET CLUMPS FLAG 10 (0-99); PLATELET COUNT 262 10^3/uL (150-400); RED BLOOD CELL COUNT 2.74 10^6/uL (4.18-5.33); RED CELL DISTRIBUTION WIDTH 14.7 % (11.5-15.2)
[2017-04-08 06:21] LABS: INR 1.48 (0.83-1.16); PROTIME(PATIENT) 17.9 SEC (12.0-15.0)
[2017-04-08 06:23] LABS: ANION GAP 7 mEq/L (8-16); CALCIUM 8.6 mg/dL (8.5-10.4); CARBON DIOXIDE 33 mEq/l (22-31); CHLORIDE 97 mEq/L (97-110); CREATININE 0.6 mg/dL (0.6-1.0); GLOMERULAR FILTRATION RATE > 60; GLUCOSE 81 mg/dL (70-100); MAGNESIUM 1.7 mg/dL (1.6-2.3); POTASSIUM 3.7 mEq/L (3.5-5.2); SODIUM 137 mEq/L (134-144)
[2017-04-08] MEDS: METHIMAZOLE 5 MG TAB PO SCH (08:38)
[2017-04-08] MEDS: FUROSEMIDE 40 MG/4 ML VIAL IVP SCH (08:38)
[2017-04-08] MEDS: CARVEDILOL 3.125 MG TAB PO SCH ×2 (08:38→18:43)
[2017-04-08] MEDS: SENNOSIDES/DOCUSATE SODIUM TAB PO SCH ×2 (08:40→20:09)
[2017-04-08] MEDS: ESTRADIOL 42.5 GM CRTUBE VG SCH (15:54)
[2017-04-08] MEDS: WARFARIN SODIUM 3 MG TAB PO SCH (15:55)
[2017-04-08] MEDS ORDERED: WARFARIN SODIUM 1 MG TAB PO ONE (16:00)
--- NOTE | 2017-04-08 16:43 | PDCARPN ---
Cardiology Progress Note Chief Complaint: AF/DCHF Assessment/Plan: Assessment: 76F PMH MV repair 1991, [employer] AVR 2007, hypoT, RA, metastatic breast CA, here with worsening shortness and VERONIQUE starting 1-2 weeks [employer]. #. DCHF: still appears moderately volume overloaded with JVD, peripheral edema and crackles on exam though crackles are improved has diuresed some though base weight is the same has resumed using compressive stockings #. AF RVR now in SR with short bouts of AF RVR has completed Amiodarone gtt and so will be started on Amiodarone PO R/B/A reviewed #. AVR/MV repair: mod MR and TR on echo report/ stable AVR #. hypotension: BP borderline which may preclude her staying on Coreg but OK for now will continue and monitor for now 04/07/17 10:26 04/08/17 16:39 Subjective: reports feeling better. Breathing stable. No cp/palps. Objective: Vital Signs (8 Hrs) Temp Pulse Resp BP Pulse Ox 04/08/17 16:00 87 20 101/64 98 04/08/17 12:36 84 18 96 04/08/17 11:28 98.1 F 80 19 98/53 L 98 Intake/Output (24 Hrs) 04/07/17 04/08/17 04/09/17 05:59 05:59 05:59 Intake Total 1070 996.8 Output Total 100 100 Balance 1070 896.8 -100 Intake: Oral (ml) 1010 550 IV Intake (ml) 30 IV Infused (ml) 60 416.8 Amiodarone HCl 100 ml @ 100 600 mls/hr IV ONCE ONE Rx #:[id number] Amiodarone HCl 200 ml @ 200 33.333 mls/hr IV ONCE ONE Rx#:[id number] Amiodarone HCl 540 mg In 66.8 D5w 300 ml @ 16.667 mls/ hr IV ONCE ONE Rx#: [id number] cefTRIAXone 1 GM/DEXTROSE 60 50 50 ml @ 100 mls/hr IV DAILY [facility] Rx#:[id number] Output: Urine (ml) 100 100 Toilet 100 100 Other: Weight 44.8 kg 45 kg Output Comment Incontinence significant output volume Number of Voids Incontinence 3 2 1 Toilet 1 1 Result Diagrams: 04/08/17 05:09 04/08/17 05:09 Telemetry: SR with short bouts of AF - Physical Exam Constitutional: cachectic Eyes: anicteric sclera Cardiovascular: systolic murmur, irregularly irregular Respiratory: reduced air movement Skin: other (wearing compressive stockings) ICD10 Worksheet Patient Problems: Problems Problem Status Onset Chronic Disease Mgmt/Transitional Care Acute Supratherapeutic INR Acute Weakness Acute Hypotension Acute Dehydration Acute Pulmonary edema Acute CHF (congestive heart failure) Acute Dyspnea Acute
--- NOTE | 2017-04-08 17:45 | HOSPPROG ---
Hospitalist Progress Note Assessment/Plan: # sob: in setting of chronic hypoxic respiratory failure and improving symptomatically. ? chf versus pna versus atelectasis. Continue IV lasix for now # a fib w/rvr: started on low dose BB and has converted to SR initially but overnight rates increased again to the 160s and started rather on amio gtt at this time. Cardiology following, appreciate their help # uti: >100K GNR noted on urine culture, final s/s pending, for now treating with ctx, likely contributing to above. # right lung consolidation: as above, suspect this is more likely asymmetric pulmonary edema rather than pna without much clinically to suggest pna. Lasix as above, will repeat cxr in am # metastatic breast cancer: previously known to have mets to lung, on hormone therapy as well as s/p recent xrt # chronic anemia: in setting of chronic severe RA as well as metastatic breast cancer and presumably 2/2 anemia of chronic disease # low tsh/low t3/normal free t4, at this time would not change treatment and would have these repeated in 4-6 weeks, continued on methimazole # generalized weakness: with inability to really move around much at this time, per patient and her she is near baseline, continue pt/ot # RA: continued on mtx # severe t10 compression fx: without complaints clearly related to this, appears likely more chronic # protein calorie malnutrition: bmi 19, dietary consult # vhd: with hx of aortic and mitral valve surgeries in the past, no change noted on echo in valve function # dispo: IP status, multiple active medical issues Care plan reviewed with cardiology DIAGNOSES: 1- acute chf with hypoxemic resp failure 2- a fib with rapid vent rate 3. Anemia, likely due to her cancer and related therapy 4- UTI gram neg john pansensitive E coli 5- severe deconditioning 6- protein calorie malnutrition 7- metastatic breast cancer I have reviewed with Petra Siddiqui today PLANS: -continue diuresis -continue amiodarone, changed to oral -the patient feels like she is ready for transfusion, and I think this would help her but I would recommend we wait until we have her AFib and CHF better controlled; I will review this with her oncologist -can change to oral antibiotics for UTI at this time -PT and OT -nutritional support SUBJECTIVE: Overall she feels better today but still quite weak and tired Never short of breath but on a lot of oxygen No chills or sweats OBJECTIVE Vitals reviewed: Stable without fever 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, my review: Now sinus with some intermittent AFib Exam: alert oriented skin warm dry color ok resps remain labored on oxygen lungs very diminished BSs heart regular abd soft nondistended nontender, bowel sounds present limbs warm, edema still present iv site ok Objective: Vital Signs Temp Pulse Resp BP Pulse Ox 36.7 C 87 18 101/64 96 04/08/17 11:28 04/08/17 17:24 04/08/17 17:24 04/08/17 16:00 04/08/17 17:24 Microbiology 04/05/17 14:23 Urine Culture - Final Urine,Clean Catch Escherichia Coli Escherichia Coli#2 Laboratory Results 04/08/17 05:09 04/08/17 05:09 04/07/17 04/08/17 04/09/17 06:59 06:59 06:59 Intake Total 1200 866.8 Output Total 100 100 Balance 1200 766.8 -100 PT 17.9 SEC (12.0-15.0) H 04/08/17 05:09 INR 1.48 (0.83-1.16) H 04/08/17 05:09 ICD10 Worksheet Patient Problems: Problems Problem Status Onset Chronic Disease Mgmt/Transitional Care Acute Supratherapeutic INR Acute Weakness Acute Hypotension Acute Dehydration Acute Pulmonary edema Acute CHF (congestive heart failure) Acute Dyspnea Acute
[2017-04-08] MEDS: AMIODARONE HCL 200 MG TAB PO SCH (20:09)
[2017-04-09 04:47] LABS: INR 1.79 (0.83-1.16); PROTIME(PATIENT) 20.9 SEC (12.0-15.0)
[2017-04-09 04:55] LABS: ANION GAP 8 mEq/L (8-16); CALCIUM 8.8 mg/dL (8.5-10.4); CARBON DIOXIDE 36 mEq/l (22-31); CHLORIDE 96 mEq/L (97-110); CREATININE 0.7 mg/dL (0.6-1.0); GLOMERULAR FILTRATION RATE > 60; GLUCOSE 86 mg/dL (70-100); POTASSIUM 3.5 mEq/L (3.5-5.2); SODIUM 140 mEq/L (134-144)
[2017-04-09] MEDS: ENOXAPARIN 40 MG/0.4 ML SYR SC SCH ×2 (05:05→16:09)
[2017-04-09] MEDS: IPRATROPIUM/ALBUTEROL 3 ML DEYVIAL IH SCH ×4 (05:38→22:21)
[2017-04-09] MEDS: SENNOSIDES/DOCUSATE SODIUM TAB PO SCH ×2 (09:30→20:40)
[2017-04-09] MEDS: CARVEDILOL 3.125 MG TAB PO SCH ×2 (09:30→18:06)
[2017-04-09] MEDS: AMIODARONE HCL 200 MG TAB PO SCH ×2 (09:30→20:39)
[2017-04-09] MEDS: METHIMAZOLE 5 MG TAB PO SCH (09:31)
[2017-04-09] MEDS: FUROSEMIDE 40 MG/4 ML VIAL IVP SCH (09:32)
[2017-04-09] MEDS: ACETAMINOPHEN 325 MG TAB PO PRN ×2 (10:34→22:39)
--- NOTE | 2017-04-09 12:32 | HOSPPROG ---
Hospitalist Progress Note Assessment/Plan: DIAGNOSES: 1- acute chf with hypoxemic resp failure 2- a fib with rapid vent rate 3. Anemia, likely due to her cancer and related therapy 4- UTI gram neg john pansensitive E coli 5- severe deconditioning 6- protein calorie malnutrition 7- metastatic breast cancer She is maintaining NSR for the most part w a few short spells of tachycardia likely AFib, and she feels notably less symptomatic overall with that but is still dyspneic. So far we have not really had any successful diuresis, and given her very large R atrium on CXR and pulm edema I think we will need to be more aggressive w diuresis. I will review w cardiology. Again, it may be helpful to give RBCs but I think that getting her diureses adequately first would be safer. 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, my review: Now sinus with some intermittent AFib Exam: alert oriented skin warm dry color ok resps remain labored on oxygen lungs very diminished BSs heart regular abd soft nondistended nontender, bowel sounds present limbs warm, edema still present iv site ok Objective: Vital Signs Temp Pulse Resp BP Pulse Ox 36.4 C 70 18 78/48 L 97 04/09/17 11:46 04/09/17 11:52 04/09/17 11:52 04/09/17 11:46 04/09/17 11:52 Microbiology 04/05/17 14:23 Urine Culture - Final Urine,Clean Catch Escherichia Coli Escherichia Coli#2 Laboratory Results 04/08/17 05:09 04/09/17 04:11 04/08/17 04/09/17 04/10/17 06:59 06:59 06:59 Intake Total 866.8 800 25 Output Total 100 300 Balance 766.8 500 25 PT 20.9 SEC (12.0-15.0) H 04/09/17 04:11 INR 1.79 (0.83-1.16) H 04/09/17 04:11 ICD10 Worksheet Patient Problems: Problems Problem Status Onset CHF (congestive heart failure) Acute Dyspnea Acute Pulmonary edema Acute Chronic Disease Mgmt/Transitional Care Acute Dehydration Acute Hypotension Acute Supratherapeutic INR Acute Weakness Acute
[2017-04-09] MEDS: LIDOCAINE 5% 1 EA PATCH TD SCH (12:57)
--- NOTE | 2017-04-09 14:29 | PDCARPN ---
Cardiology Progress Note Assessment/Plan: Assessment: 1. Diastolic CHF 2. Atrial Fibrillation 3. Respiratory Failure 4. Anemia 5. Breast cancer Plan: -Add metolozone 2.5 mg once daily (first dose now ) -Continue current medications -If fluid balance is negative, recommend transfused PRBC 04/09/17 14:27 Subjective: Brenda is feeling markedly better than when I saw her in the office last week. She is feeling less sob. Edema is improving. She is now in NSR. Note she was started on Amiodarone. Despite, feeling better, her volume status is still positive. Her Hgb is low at 8.6. NO chest pain. Reviewed/Discussed With: family, hospitalist Objective: Vital Signs (8 Hrs) Temp Pulse Resp BP Pulse Ox 04/09/17 12:40 94/54 L 04/09/17 11:52 70 18 97 04/09/17 11:46 36.4 C 71 20 78/48 L 99 04/09/17 09:30 90 107/64 04/09/17 08:00 36.7 C 79 28 H 100/62 95 Intake/Output (24 Hrs) 04/08/17 04/09/17 04/10/17 05:59 05:59 05:59 Intake Total 996.8 800 25 Output Total 100 300 Balance 896.8 500 25 Intake: Oral (ml) 550 700 25 IV Intake (ml) 30 IV Infused (ml) 416.8 100 Amiodarone HCl 100 ml @ 100 600 mls/hr IV ONCE ONE Rx #:[id number] Amiodarone HCl 200 ml @ 200 33.333 mls/hr IV ONCE ONE Rx#:[id number] Amiodarone HCl 540 mg In 66.8 D5w 300 ml @ 16.667 mls/ hr IV ONCE ONE Rx#: [id number] cefTRIAXone 1 GM/DEXTROSE 50 100 50 ml @ 100 mls/hr IV DAILY [facility] Rx#:[id number] Output: Urine (ml) 100 300 Toilet 100 300 Other: Weight 45 kg 45 kg Number of Voids Incontinence 2 1 Toilet 1 1 Result Diagrams: 04/08/17 05:09 04/09/17 04:11 - Physical Exam Constitutional: no apparent distress Cardiovascular: regular rate and rhythm, systolic murmur Peripheral Pulses: 2+: carotid (R), carotid (L) Respiratory: clear to auscultate bilat Neurologic: AAOx3, CN II-XII grossly intact Psychiatric: cooperative, interactive, following commands ICD10 Worksheet Patient Problems: Problems Problem Status Onset CHF (congestive heart failure) Acute Dyspnea Acute Pulmonary edema Acute Chronic Disease Mgmt/Transitional Care Acute Dehydration Acute Hypotension Acute Supratherapeutic INR Acute Weakness Acute
[2017-04-09] MEDS: METOLAZONE 2.5 MG TAB PO SCH (16:09)
[2017-04-09] MEDS: WARFARIN SODIUM 3 MG TAB PO SCH (16:09)
[2017-04-09] MEDS: CEPHALEXIN 500 MG CAP PO SCH ×2 (18:06→22:39)
[2017-04-09] MEDS: PATCH REMOVAL 1 EA PATCH TD SCH (20:40)
[2017-04-10] MEDS: CYCLOBENZAPRINE 10 MG TAB PO PRN ×2 (00:13→21:23)
[2017-04-10] MEDS: ENOXAPARIN 40 MG/0.4 ML SYR SC SCH ×2 (04:05→17:30)
[2017-04-10] MEDS: IPRATROPIUM/ALBUTEROL 3 ML DEYVIAL IH SCH ×4 (05:04→16:41)
[2017-04-10 05:11] LABS: % IMMATURE GRANULYOCYTES 0.5 % (0.0-1.1); ABSOLUTE IMMATURE GRANULOCYTES 0.03 10^3/uL (0.00-0.10); ADD DIFF? NO; ADD MORPH? NO; ADD SCAN? NO; ATYPICAL LYMPHOCYTE FLAG 10 (0-99); FRAGMENT RBC FLAG 0 (0-99); HEMATOCRIT 26.2 % (38.0-47.0); HEMOGLOBIN 8.1 g/dL (12.6-16.3); INR 2.12 (0.83-1.16); LEFT SHIFT FLG 0 (0-99); LIPEMIA HEMOLYSIS FLAG 80 (0-99); MEAN CELL HEMOGLOBIN 30.5 pg (27.9-34.1); MEAN CELL HEMOGLOBIN CONCENTR. 30.9 g/dL (32.4-36.7); MEAN CELL VOLUME 98.5 fL (81.5-99.8); MEAN PLATELET VOLUME 9.9 fL (8.7-11.7); PLATELET CLUMPS FLAG 0 (0-99); PLATELET COUNT 231 10^3/uL (150-400); PROTIME(PATIENT) 23.9 SEC (12.0-15.0); RED BLOOD CELL COUNT 2.66 10^6/uL (4.18-5.33); RED CELL DISTRIBUTION WIDTH 14.5 % (11.5-15.2)
[2017-04-10 05:16] LABS: ANION GAP 6 mEq/L (8-16); CALCIUM 8.7 mg/dL (8.5-10.4); CARBON DIOXIDE 37 mEq/l (22-31); CHLORIDE 94 mEq/L (97-110); CREATININE 0.6 mg/dL (0.6-1.0); GLOMERULAR FILTRATION RATE > 60; GLUCOSE 85 mg/dL (70-100); MAGNESIUM 1.7 mg/dL (1.6-2.3); POTASSIUM 3.5 mEq/L (3.5-5.2); SODIUM 137 mEq/L (134-144)
[2017-04-10] MEDS: CEPHALEXIN 500 MG CAP PO SCH ×3 (06:04→17:29)
[2017-04-10] MEDS: METOLAZONE 2.5 MG TAB PO SCH (11:02)
[2017-04-10] MEDS: AMIODARONE HCL 200 MG TAB PO SCH ×2 (11:02→21:03)
[2017-04-10] MEDS: METHIMAZOLE 5 MG TAB PO SCH (11:03)
[2017-04-10] MEDS: LIDOCAINE 5% 1 EA PATCH TD SCH (11:08)
[2017-04-10] MEDS: FUROSEMIDE 40 MG/4 ML VIAL IVP SCH (11:13)
[2017-04-10] MEDS: SENNOSIDES/DOCUSATE SODIUM TAB PO SCH ×2 (11:16→21:03)
[2017-04-10] MEDS: ESTRADIOL 42.5 GM CRTUBE VG SCH (12:16)
[2017-04-10] MEDS: CARVEDILOL 3.125 MG TAB PO SCH ×2 (12:16→21:23)
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
--- NOTE | 2017-04-10 15:18 | HOSPPROG ---
Hospitalist Progress Note Assessment/Plan: DIAGNOSES: 1- acute chf with hypoxemic resp failure 2- a fib with rapid vent rate, has converted to NSR 3. Anemia, likely due to her cancer and related therapy 4- UTI gram neg john pansensitive E coli 5- severe deconditioning 6- protein calorie malnutrition 7- metastatic breast cancer Again we are not making much progress with diuresis, even with metolazone. It may be that anemia and low albumin are hindering this. Will give RBCs today and increase nutritional supplement. Consider IV albumin. I have reviewed in detail with Alyssa Siddiqui of cardiology today PLANS: -continue diuresis -continue amiodarone, changed to oral -the patient feels like she is ready for transfusion, and I think this would help her but I would recommend we wait until we have her AFib and CHF better controlled; I will review this with her oncologist -changed to oral antibiotics for UTI at this time -PT and OT -nutritional support SUBJECTIVE: again feels better today with less lightheadedness and weakness, but still weak and tired and with some mild dyspnea No chills or sweats OBJECTIVE Vitals reviewed: Stable without fever 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, my review: Now sinus I&O are still not showing signs of diuresis and weight not changing Exam: alert oriented skin warm dry color ok resps remain labored on oxygen lungs very diminished BSs heart regular abd soft nondistended nontender, bowel sounds present limbs warm, edema still present iv site ok Objective: Vital Signs Temp Pulse Resp BP Pulse Ox 36.7 C 84 20 110/65 95 04/10/17 12:00 04/10/17 12:16 04/10/17 12:00 04/10/17 12:16 04/10/17 12:00 Laboratory Results 04/10/17 04:37 04/10/17 04:37 04/09/17 04/10/17 04/11/17 06:59 06:59 06:59 Intake Total 800 725 Output Total 300 200 301 Balance 500 525 -301 PT 23.9 SEC (12.0-15.0) H 04/10/17 04:37 INR 2.12 (0.83-1.16) H 04/10/17 04:37 - Time Spent With Patient Time Spent with Patient: greater than 35 minutes Time Spent with Patient: Greater than 35 minutes spent on this patients care, greater than 50% of time spent counseling, educating, and coordinating care regarding the above mentioned plan. ICD10 Worksheet Patient Problems: Problems Problem Status Onset CHF (congestive heart failure) Acute Dyspnea Acute Pulmonary edema Acute Chronic Disease Mgmt/Transitional Care Acute Dehydration Acute Hypotension Acute Supratherapeutic INR Acute Weakness Acute
[2017-04-10] MEDS: WARFARIN SODIUM 3 MG TAB PO SCH (17:29)
[2017-04-10] MEDS: PATCH REMOVAL 1 EA PATCH TD SCH (21:05)
[2017-04-10] MEDS ORDERED: IPRATROPIUM/ALBUTEROL 3 ML DEYVIAL IH PRN (21:35)
[2017-04-11] MEDS: CEPHALEXIN 500 MG CAP PO SCH ×5 (00:20→23:53)
[2017-04-11 04:36] LABS: % IMMATURE GRANULYOCYTES 0.5 % (0.0-1.1); ABSOLUTE IMMATURE GRANULOCYTES 0.03 10^3/uL (0.00-0.10); ADD DIFF? NO; ADD MORPH? NO; ADD SCAN? NO; ATYPICAL LYMPHOCYTE FLAG 10 (0-99); FRAGMENT RBC FLAG 0 (0-99); HEMATOCRIT 30.6 % (38.0-47.0); HEMOGLOBIN 9.7 g/dL (12.6-16.3); LEFT SHIFT FLG 0 (0-99); LIPEMIA HEMOLYSIS FLAG 80 (0-99); MEAN CELL HEMOGLOBIN 30.2 pg (27.9-34.1); MEAN CELL HEMOGLOBIN CONCENTR. 31.7 g/dL (32.4-36.7); MEAN CELL VOLUME 95.3 fL (81.5-99.8); MEAN PLATELET VOLUME 9.9 fL (8.7-11.7); PLATELET CLUMPS FLAG 0 (0-99); PLATELET COUNT 232 10^3/uL (150-400); RED BLOOD CELL COUNT 3.21 10^6/uL (4.18-5.33); RED CELL DISTRIBUTION WIDTH 15.2 % (11.5-15.2)
[2017-04-11 04:50] LABS: ANION GAP 7 mEq/L (8-16); CALCIUM 8.8 mg/dL (8.5-10.4); CARBON DIOXIDE 38 mEq/l (22-31); CHLORIDE 89 mEq/L (97-110); CREATININE 0.6 mg/dL (0.6-1.0); GLOMERULAR FILTRATION RATE > 60; GLUCOSE 86 mg/dL (70-100); POTASSIUM 3.7 mEq/L (3.5-5.2); SODIUM 134 mEq/L (134-144)
[2017-04-11 04:54] LABS: INR 2.12 (0.83-1.16); PROTIME(PATIENT) 23.9 SEC (12.0-15.0)
[2017-04-11] MEDS: ENOXAPARIN 40 MG/0.4 ML SYR SC SCH (05:36)
[2017-04-11] MEDS: LIDOCAINE 5% 1 EA PATCH TD SCH (08:47)
[2017-04-11] MEDS: METOLAZONE 2.5 MG TAB PO SCH (08:48)
[2017-04-11] MEDS: METHIMAZOLE 5 MG TAB PO SCH (08:48)
[2017-04-11] MEDS: SENNOSIDES/DOCUSATE SODIUM TAB PO SCH ×2 (08:49→22:05)
[2017-04-11] MEDS: CARVEDILOL 3.125 MG TAB PO SCH ×2 (08:49→18:04)
[2017-04-11] MEDS: AMIODARONE HCL 200 MG TAB PO SCH ×2 (08:49→21:43)
[2017-04-11] MEDS: FUROSEMIDE 40 MG/4 ML VIAL IVP SCH (08:50)
[2017-04-11] MEDS: METHOTREXATE 2.5 MG TAB PO SCH (09:22)
--- NOTE | 2017-04-11 11:00 | HOSPPROG ---
Hospitalist Progress Note Assessment/Plan: DIAGNOSES: 1- acute chf with hypoxemic resp failure 2- a fib with rapid vent rate, has converted to NSR 3. Anemia, likely due to her cancer and related therapy; s/p one unit RBC transfusion w appropriate response 4- UTI / pansensitive E coli 5- severe deconditioning 6- protein calorie malnutrition 7- metastatic breast cancer Finally better diuresis since yest, but still less than would be ideal. 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, my review: Now sinus I&O finally some diuresis is documented Exam: alert oriented skin warm dry color ok resps remain labored on oxygen lungs very diminished BSs heart regular abd soft nondistended nontender, bowel sounds present limbs warm, edema still present iv site ok Objective: Vital Signs Temp Pulse Resp BP Pulse Ox 36.9 C 71 22 H 108/58 L 94 04/11/17 07:54 04/11/17 07:54 04/11/17 07:54 04/11/17 07:54 04/11/17 07:54 Laboratory Results 04/11/17 03:47 04/11/17 03:47 04/10/17 04/11/17 04/12/17 06:59 06:59 06:59 Intake Total 725 350 Output Total 200 751 100 Balance 525 -401 -100 PT 23.9 SEC (12.0-15.0) H 04/11/17 03:47 INR 2.12 (0.83-1.16) H 04/11/17 03:47 ICD10 Worksheet Patient Problems: Problems Problem Status Onset CHF (congestive heart failure) Acute Dyspnea Acute Pulmonary edema Acute Chronic Disease Mgmt/Transitional Care Acute Dehydration Acute Hypotension Acute Supratherapeutic INR Acute Weakness Acute
[2017-04-11] MEDS: ACETAMINOPHEN 325 MG TAB PO PRN ×2 (15:38→21:43)
[2017-04-11] MEDS: WARFARIN SODIUM 3 MG TAB PO SCH (15:38)
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
[2017-04-11] MEDS: CYCLOBENZAPRINE 10 MG TAB PO PRN (21:44)
[2017-04-11] MEDS: PATCH REMOVAL 1 EA PATCH TD SCH (22:05)
[2017-04-12] MEDS: CEPHALEXIN 500 MG CAP PO SCH ×4 (05:31→23:51)
[2017-04-12 05:35] LABS: % IMMATURE GRANULYOCYTES 0.4 % (0.0-1.1); ABSOLUTE IMMATURE GRANULOCYTES 0.03 10^3/uL (0.00-0.10); ADD DIFF? NO; ADD MORPH? NO; ADD SCAN? NO; ATYPICAL LYMPHOCYTE FLAG 0 (0-99); FRAGMENT RBC FLAG 0 (0-99); HEMOGLOBIN 10.1 g/dL (12.6-16.3); LEFT SHIFT FLG 0 (0-99); LIPEMIA HEMOLYSIS FLAG 80 (0-99); MEAN CELL HEMOGLOBIN 30.1 pg (27.9-34.1); MEAN CELL HEMOGLOBIN CONCENTR. 31.6 g/dL (32.4-36.7); MEAN CELL VOLUME 95.2 fL (81.5-99.8); MEAN PLATELET VOLUME 9.8 fL (8.7-11.7); PLATELET CLUMPS FLAG 0 (0-99); PLATELET COUNT 239 10^3/uL (150-400); RED BLOOD CELL COUNT 3.36 10^6/uL (4.18-5.33); RED CELL DISTRIBUTION WIDTH 14.6 % (11.5-15.2)
[2017-04-12 05:45] LABS: ANION GAP 7 mEq/L (8-16); CALCIUM 8.7 mg/dL (8.5-10.4); CARBON DIOXIDE 39 mEq/l (22-31); CHLORIDE 85 mEq/L (97-110); CREATININE 0.6 mg/dL (0.6-1.0); GLOMERULAR FILTRATION RATE > 60; GLUCOSE 77 mg/dL (70-100); POTASSIUM 3.5 mEq/L (3.5-5.2); SODIUM 131 mEq/L (134-144)
[2017-04-12] MEDS: ACETAMINOPHEN 325 MG TAB PO PRN (06:02)
[2017-04-12] MEDS: LIDOCAINE 5% 1 EA PATCH TD SCH (09:04)
[2017-04-12] MEDS: FUROSEMIDE 40 MG/4 ML VIAL IVP SCH (09:06)
[2017-04-12] MEDS: METHIMAZOLE 5 MG TAB PO SCH (09:06)
[2017-04-12] MEDS: METOLAZONE 2.5 MG TAB PO SCH (09:06)
[2017-04-12] MEDS: CARVEDILOL 3.125 MG TAB PO SCH (09:06)
[2017-04-12] MEDS: AMIODARONE HCL 200 MG TAB PO SCH ×2 (09:06→19:41)
[2017-04-12] MEDS: SENNOSIDES/DOCUSATE SODIUM TAB PO SCH ×2 (09:08→20:02)
[2017-04-12] MEDS: ESTRADIOL 42.5 GM CRTUBE VG SCH (09:08)
--- NOTE | 2017-04-12 09:43 | HOSPPROG ---
Hospitalist Progress Note Assessment/Plan: DIAGNOSES: 1- acute chf with hypoxemic resp failure 2- a fib and a flutter with rapid vent rate, had converted to NSR on amio but now having some rapid a flutter again 3. Anemia, likely due to her cancer and related therapy; s/p one unit RBC transfusion w appropriate response 4- UTI / pansensitive E coli 5- severe deconditioning 6- protein calorie malnutrition 7- metastatic breast cancer Unable to document any further diuresis overnight by I&O but her weight is down nicely Her situation is complicated by combination of hypotension, rapid a flutter, need for ongoing diuresis. At this point the a flutter is intermittent. She is still really loading on amiodarone. I have reviewed in detail with Dr Caraballo of cardiology today. We will continue to watch on monitor to see how much of the a flutter she has. If she continues the a flutter it may make sense to stop her carvedilol which is not controlling her rate, and increased her amiodarone. 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, my review: Now sinus but with numerous spells or rapid a flutter I&O no diuresis documented Exam: alert oriented skin warm dry color ok resps remain labored on oxygen lungs very diminished BSs heart regular abd soft nondistended nontender, bowel sounds present limbs warm, edema still present iv site ok Objective: Vital Signs Temp Pulse Resp BP Pulse Ox 36.4 C 66 14 95/67 L 96 04/12/17 06:42 04/12/17 06:42 04/12/17 06:42 04/12/17 06:42 04/12/17 06:42 Laboratory Results 04/12/17 03:58 04/12/17 03:58 04/11/17 04/12/17 04/13/17 06:59 06:59 06:59 Intake Total 350 650 Output Total 751 500 Balance -401 150 PT 23.9 SEC (12.0-15.0) H 04/11/17 03:47 INR 2.12 (0.83-1.16) H 04/11/17 03:47 ICD10 Worksheet Patient Problems: Problems Problem Status Onset CHF (congestive heart failure) Acute Dyspnea Acute Pulmonary edema Acute Chronic Disease Mgmt/Transitional Care Acute Dehydration Acute Hypotension Acute Supratherapeutic INR Acute Weakness Acute
[2017-04-12] MEDS ORDERED: AMIODARONE HCL 200 MG TAB PO ONE (10:06)
[2017-04-12] MEDS: guaiFENesin 600 MG TAB.ER PO SCH ×2 (10:17→19:41)
[2017-04-12] MEDS: WARFARIN SODIUM 3 MG TAB PO SCH (15:33)
--- NOTE | 2017-04-12 15:41 | PDCARPN ---
Cardiology Progress Note Assessment/Plan: Assessment: 1. Diastolic CHF 2. Atrial Fibrillation and paroxysmal atrial flutter 3. Respiratory Failure 4. Anemia 5. Breast cancer Plan: -Stop Metolazone with decline in sodium -Increase Amiodarone to 400 mg bid -Continue to monitor on telemetry 04/12/17 15:43 Subjective: Brenda states she feels 95% better. Her weight is down 4 Kg with the addition of metolazone. She notes marked improvment in complaints of sob. Ankle edema has improved. She received a single unit PRBC's on with appropriate improvment in Hgb. Brenda continue to have episodes of Aflutter with RVR at approximately 140 bpm. She is on amiodarone 200 mg bid Reviewed/Discussed With: family, hospitalist Time Spent With Patient: 20 minutes Objective: Vital Signs (8 Hrs) Temp Pulse Resp BP Pulse Ox 04/12/17 11:41 36.4 C 71 15 100/61 92 Intake/Output (24 Hrs) 04/11/17 04/12/17 04/13/17 05:59 05:59 05:59 Intake Total 350 650 320 Output Total 751 500 250 Balance -401 150 70 Intake: Oral (ml) 350 650 320 Output: Urine (ml) 751 500 250 Incontinence 1 Toilet 750 500 250 Other: Weight 44.3 kg 43.9 kg 41 kg Number of Voids Incontinence 1 1 1 Toilet 1 2 Number of Stools Toilet 1 Result Diagrams: 04/12/17 03:58 04/12/17 03:58 Telemetry: NSR. paroxysmal atrial flutter - Physical Exam Cardiovascular: regular rate and rhythm, other (normal mechanical heart valve sounds ) Respiratory: clear to auscultate bilat Neurologic: CN II-XII grossly intact ICD10 Worksheet Patient Problems: Problems Problem Status Onset CHF (congestive heart failure) Acute Dyspnea Acute Pulmonary edema Acute Chronic Disease Mgmt/Transitional Care Acute Dehydration Acute Hypotension Acute Supratherapeutic INR Acute Weakness Acute
[2017-04-12] MEDS: CYCLOBENZAPRINE 10 MG TAB PO PRN (19:40)
[2017-04-12] MEDS: PATCH REMOVAL 1 EA PATCH TD SCH (20:02)
[2017-04-13] MEDS: CEPHALEXIN 500 MG CAP PO SCH ×2 (06:18→11:45)
[2017-04-13] MEDS: FUROSEMIDE 40 MG/4 ML VIAL IVP SCH (08:16)
[2017-04-13] MEDS: LIDOCAINE 5% 1 EA PATCH TD SCH (08:16)
[2017-04-13] MEDS: AMIODARONE HCL 200 MG TAB PO SCH (08:17)
[2017-04-13] MEDS: METHIMAZOLE 5 MG TAB PO SCH (08:18)
[2017-04-13] MEDS: guaiFENesin 600 MG TAB.ER PO SCH (08:18)
[2017-04-13] MEDS: SENNOSIDES/DOCUSATE SODIUM TAB PO SCH (08:19)
--- NOTE | 2017-04-13 11:24 | PDCARPN ---
Cardiology Progress Note Chief Complaint: Brenda is feeling well this morning. No new complaints. Assessment/Plan: Assessment: 1. Diastolic CHF 2. Atrial Fibrillation and paroxysmal atrial flutter 3. Respiratory Failure 4. Anemia 5. Breast cancer Plan: -Stable for discharge home with homecare -change lasix to 40 mg daily -continue Amiodarone 400 mg bid for 5 days and then decrease to 200 mg daily -Follow up in one week in my office, will call with date and time -Labwork pending for today. 04/13/17 11:22 Subjective: Brenda is feeling well this AM. Paroxysms of atrial flutter yesterday have decreased in frequency and duration. Edema continues to improe. Metolozaone stopped yesterday. Labs pending. I think she is stable for discharge with home care . Reviewed/Discussed With: hospitalist, multidisciplinary team Time Spent With Patient: 20 minute Objective: Vital Signs (8 Hrs) Temp Pulse Resp BP Pulse Ox 04/13/17 07:49 36.4 C 89 14 102/59 L 99 04/13/17 05:59 36.6 C 90 20 104/55 L 97 Intake/Output (24 Hrs) 04/12/17 04/13/17 04/14/17 05:59 05:59 05:59 Intake Total 650 820 200 Output Total 500 675 150 Balance 150 145 50 Intake: Oral (ml) 650 820 200 Output: Urine (ml) 500 675 150 Toilet 500 675 150 Other: Weight 43.9 kg 41 kg 43 kg Number of Voids Incontinence 1 1 1 Toilet 2 Number of Stools Toilet 1 Result Diagrams: 04/12/17 03:58 04/12/17 03:58 - Physical Exam Cardiovascular: regular rate and rhythm, other (normal mechanical heart valve sounds ) Respiratory: clear to auscultate bilat Gastrointestinal: no tenderness Musculoskeletal: no muscular tenderness Neurologic: AAOx3, CN II-XII grossly intact Psychiatric: cooperative, interactive, following commands ICD10 Worksheet Patient Problems: Problems Problem Status Onset Chronic Disease Mgmt/Transitional Care Acute Supratherapeutic INR Acute Weakness Acute Hypotension Acute Dehydration Acute Pulmonary edema Acute CHF (congestive heart failure) Acute Dyspnea Acute
[2017-04-13 11:40] VITALS: BP 104/65; PULSE 79; RESP 28; TEMP 98.2; O2SAT 98
--- NOTE | 2017-04-13 11:40 | PDDCSUM ---
Discharge Summary Discharge Summary: DISCHARGE DIAGNOSES: 1- acute chf with hypoxemic resp failure 2- a fib and a flutter with rapid vent rate, had converted to NSR on amio but now having some rapid a flutter again 3. Anemia, likely due to her cancer and related therapy; s/p one unit RBC transfusion w appropriate response 4- UTI Uncomplicated cystitis/ pansensitive E coli 5- severe deconditioning 6- protein calorie malnutrition 7- metastatic breast cancer CONSULTANTS: Dr. Dariel Vasquez cardiology HOSPITAL COURSE SUMMARY: This patient presented to the hospital with shortness of breath was found to have acute diastolic congestive heart failure with rapid atrial fibrillation and atrial flutter. 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 She was treated with diuresis, rate control medicines, and amiodarone which initially had converted her to sinus rhythm. However she subsequently went back to atrial fibrillation. We did effectively get some diuresis but very little over time and were hampered by her hypotension there. We did give her transfusions and this allowed a little bit of improvement in diuresis but really was fairly limited. With good rate control it was felt that there was really little else that we could do for her at this time that would be of real significant benefit. She is therefore discharged in stable condition still with atrial fibrillation. We have her on 40 mg twice daily of amiodarone in hopes to cardiovert her over the next week. She is on chronic anticoagulation. MEDICATION CHANGES: Addition of Lasix 40 mg daily Addition of amiodarone 400 mg twice daily for a week followed by 4 mg daily after that FOLLOW-UP PLAN: Follow up with Dr. Vasquez this coming week in clinic Follow up with her oncologist and primary care physician as well Greater than 35 minutes bedside and care coordination time today
--- NOTE | 2017-04-13 11:42 | PDIAF ---
- Diagnosis Diagnosis: chf, afib, metastatic cancer Code Status: Full Code - Medication Management Discharge Medications: Medications to Continue on Transfer Acetaminophen [Tylenol ES 500 mg (*)] 500 - 1,500 mg PO DAILY PRN 04/04/17 [ Last Taken 04/04/17 08:00 2 tabs] Cyclobenzaprine [Flexeril 10 MG (*)] 10 mg PO DAILY PRN 04/04/17 [Last Taken ] Estradiol [Estrace Vaginal (*)] 1 gm VAG TUTHSA 04/04/17 [Last Taken 04/01/17] Methimazole 10 mg PO DAILY 04/04/17 [Last Taken 04/03/17] Methotrexate Sodium [Rheumatrex] 7.5 mg PO FR 04/04/17 [Last Taken 03/28/17] Mupirocin 2% [Bactroban 2%] 1 devika TOP MOFR PRN 04/04/17 [Last Taken Unknown] Warfarin Sodium [Coumadin 3MG (*)] 3 mg PO SUMOWEFRSA@18 04/04/17 [Last Taken ] Warfarin Sodium [Coumadin 3MG (*)] 4.5 mg PO TUTH@18 04/04/17 [Last Taken ] celeCOXIB [CeleBREX] 100 mg PO DAILY PRN 04/04/17 [Last Taken Unknown] Amiodarone HCl [Pacerone (*)] 400 mg PO BID #60 tab 04/13/17 [Last Taken Unknown ] Furosemide [Lasix 40 MG (*)] 40 mg PO DAILY #60 tab 04/13/17 [Last Taken Unknown ] Lidocaine 5% [Lidoderm 5% Patch (*)] 1 ea TD DAILY #30 patch 04/13/17 [Last Taken Unknown] Patch Removal 1 ea TD DAILY21 patch 04/13/17 [Last Taken Unknown] Discharge Medications: Refer to the Discharge Home Medication list for PRN reason. PICC Care - Routine: N/A - Orders Services needed: Physical Therapy Diet Recommendation: sodium restricted Diet Texture: Regular Texture Diet - Follow Up Care Current Providers and Referrals: Bob Baldwin MD [Primary Care Provider] - As per Instructions
[2017-04-13 11:52] LABS: INR 2.15 (0.83-1.16); PROTIME(PATIENT) 24.2 SEC (12.0-15.0)
[2017-04-13 11:57] LABS: CALCIUM 9.5 mg/dL (8.5-10.4); CHLORIDE 80 mEq/L (97-110); CREATININE 0.6 mg/dL (0.6-1.0); GLOMERULAR FILTRATION RATE > 60; GLUCOSE 101 mg/dL (70-100); MAGNESIUM 1.9 mg/dL (1.6-2.3); POTASSIUM 3.7 mEq/L (3.5-5.2); SODIUM 132 mEq/L (134-144)
[2017-04-13 12:13] LABS: ANION GAP 8 mEq/L (8-16)
[2017-04-13 12:14] LABS: CARBON DIOXIDE 44 mEq/l (22-31)
[2017-04-13] MEDS: CYCLOBENZAPRINE 10 MG TAB PO PRN (12:59)
[2017-04-14] MEDS ORDERED: POTASSIUM CL 20 MEQ TAB PO SCH (09:00)
[2017-04-14] MEDS ORDERED: FUROSEMIDE 40 MG TAB PO SCH (09:00)
--- NOTE | 2017-04-17 10:56 | PQFORM ---
PHYSICIAN QUERY FORM Needs Your Response This query form is being sent to you to assure this patient record is coded properly. 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 Husain, The discharge summary documents the diagnosis of protein calorie malnutrition; the patient has a documented BMI of 19. Progress note dated 04/10/2017 states her low albumen (2.6 per 04/05/2017 lab) is hindering diuresis. Can the degree of malnutrition be further specified as: Mild Moderate Severe Some other degree of malnutrition Clinically undetermined Many thanks, RAMY Vogel [facility]/Coding Department INSTRUCTIONS FOR RESPONSE: Answer question by clicking on the "Edit Document" button. Move cursor to area below the stars. When complete, hit "Save." Click on the "Sign" button, then click "Sign" again. Type in your PIN and hit "Enter." moderate prot leonor malnutrition MTDD
== END 2017-04-13 13:50 | disposition home health service (06) | DRG 292 ==
LOC: F2W 20:27
PROVIDERS: ADMIT Student in an Organized Health Care Education/Training Program; ATTEND Internal Medicine
PROC: 30233N1 Transfusion of Nonautologous Red Blood Cells into Peripheral Vein, Percutaneous Approach (ICD-10-PCS; principal; 2017-04-10)
DX: I50.31 Acute diastolic (congestive) heart failure (principal); J96.11 Chronic respiratory failure with hypoxia; I48.0 Paroxysmal atrial fibrillation; I48.3 Typical atrial flutter; Z79.01 Long term (current) use of anticoagulants; D63.0 Anemia in neoplastic disease; E44.0 Moderate protein-calorie malnutrition; Z68.1 Body mass index [BMI] 19.9 or less, adult; R53.1 Weakness; N30.90 Cystitis, unspecified without hematuria; B96.20 Unspecified Escherichia coli [E. coli] as the cause of diseases classified elsewhere; C50.911 Malignant neoplasm of unspecified site of right female breast; C78.01 Secondary malignant neoplasm of right lung; C78.02 Secondary malignant neoplasm of left lung; Z95.2 Presence of prosthetic heart valve; I34.0 Nonrheumatic mitral (valve) insufficiency; M06.9 Rheumatoid arthritis, unspecified; E03.9 Hypothyroidism, unspecified; Z87.311 Personal history of (healed) other pathological fracture; Z96.642 Presence of left artificial hip joint; Z96.653 Presence of artificial knee joint, bilateral
CPT/HCPCS: 84480-90; 86905-90; 96374; 97116-GP; 97161-GP; 97166-GO; 97530-GO; 97535-GO; G8978-GP-CJ; G8979-GP-CI; G8987-GO-CK; G8988-GO-CI; J0282; J0696; J1650; J1940; P9016

== ENCOUNTER → 2017-04-04 | Outpatient (CLI) | payer OTHER | LOC: BMCIMAGING 16:33 | PROVIDERS: ATTEND Internal Medicine Cardiovascular Disease | DX: R06.02 Shortness of breath (principal); I48.91 Unspecified atrial fibrillation; M79.89 Other specified soft tissue disorders; R91.8 Other nonspecific abnormal finding of lung field ==